=== PATIENT | female | born 1985 | race Caucasian/White ===

== ENCOUNTER → 2017-01-14 | Outpatient (CLI) | payer OTHER | END | disposition home or self-care (01) | LOC: RAD 15:56 | DX: R05 Cough (principal); R06.2 Wheezing; Z87.891 Personal history of nicotine dependence ==

== ENCOUNTER 2017-07-20 10:06 | Emergency (ER) | payer OTHER ==
[~2017-07-20] VITALS: Ht 170.1 cm; Wt 139.3 kg
[2017-07-20] MEDS ORDERED: EFFEXOR XR75 M1 PO (10:51)
== END 2017-07-20 11:28 | disposition home or self-care (01) ==
LOC: ED 10:06
DX: Z76.0 Encounter for issue of repeat prescription (principal)

== ENCOUNTER 2023-08-19 16:36 | Emergency (ER) | payer OTHER ==
[~2023-08-19] VITALS: Wt 154.2 kg
[~2023-08-19 16:36] MED LIST: EFFEXOR XR75 M1 PO
[2023-08-19] MEDS ORDERED: SEPTDS PO (16:54)
== END 2023-08-19 18:28 | disposition home or self-care (01) ==
LOC: ED 16:36
DX: N61.0 Mastitis without abscess (principal); F32.A Depression, unspecified; F41.9 Anxiety disorder, unspecified; Z98.890 Other specified postprocedural states